=== PATIENT | male | born 1955 | race Caucasian/White ===

== ENCOUNTER → 2016-11-16 | Outpatient (CLI) | payer BC, OTHER ==
[~2016-11-16] MED LIST: ALLO300T2 PO; ASCO100T6 PO; ASP81CT PO; ATN25T PO; AZIT250T81 PO; CA C1TAB76 PO; CAYE450C PO; CEFD300C PO; COD1CAPS6 PO; COLC0.6T9 PO; D-MA50PO PO; HYDR-3811 PO; IODI150T PO; LACT1CAP69 PO; LD2VS20U PO; MAGN250T7 PO; PROB500T8 PO; SAW450CA4 PO; TRM50T PO; ZINC50TA2 PO; atenolol
[2016-11-16 17:29] LABS: MEAN CORPUSCULAR HEMOGLOBIN 27.6 PG (26.0-34.0); MEAN CORPUSCULAR HGB CONC 32.9 g/dL (31.0-37.0); MEAN PLATELET VOLUME 9.1 FL (6.0-9.5); WHITE BLOOD COUNT 9.58 10^3uL (4.0-11.0)
[2016-11-16 17:35] LABS: ALBUMIN 4.1 g/dL (3.4-5.0); CALCULATED IONIZED CALCIUM 3.8 mg/dL (3.8-4.6); TOTAL PROTEIN 8.2 g/dL (6.4-8.5)
[2016-11-16 17:41] LABS: ANION GAP 11.1 MEQ/L (3-15)
[2016-11-16 18:18] LABS: COLOR,URINE Yellow
[2016-11-16 18:19] LABS: BILIRUBIN,URINE Negative (Negative); CLARITY,URINE Clear; GLUCOSE, URINE (UA) Negative (Negative); LEUKOCYTE ESTERASE, URINE Negative (Negative); PH,URINE 5.5 (5.0 - 8.0); UROBILINOGEN,URINE 0.2 mg/dL (0.2-1.0)
== END ==
LOC: LAB 16:35
PROVIDERS: ATTEND Orthopaedic Surgery
DX: Z01.812 Encounter for preprocedural laboratory examination (principal)
CPT/HCPCS: 36415; 80053; 81003; 85027

== ENCOUNTER → 2017-01-03 | Outpatient (CLI) | payer BC, OTHER | LOC: RAD 10:36 | PROVIDERS: ATTEND Orthopaedic Surgery | DX: Z96.652 Presence of left artificial knee joint (principal) | CPT/HCPCS: 73560 ==

== ENCOUNTER 2017-01-11 10:45 | Outpatient (RCR) | payer BC, OTHER ==
--- NOTE | 2016-12-12 13:20 | PT/OT/ST INITIAL EVALUATION ---
[facility], [facility]. PHYSICAL/OCCUPATIONAL THERAPY [address] [place] [id number] PLAN OF CARE/ASSESSMENT FOR OUTPATIENT REHABILITATION (Complete for Initial Claims Only) 1. PATIENT'S NAME Siddharth Juarez 2. ACC. No [id number] 3. REFERRING PHYSICIAN Dr. Alcon Mayen 4. PRIMARY DX Left total knee arthroplasty 5. SECONDARY DX 6. ONSET DATE 12/04/2016 7. REFERRAL DATE 12/04/2016 8. SOC. DATE/TIME 12/07/2016 13:10 9. CHARGES Evaluation 80915 1 unit of vasopneumatic device, 78538 2 units of therapeutic exercise, 48281 10. G CODES 11. PRIOR LEVEL OF FUNCTION; PERTINENT HISTORY (Prior therapy results, reason for referral.) S: Prior to the evaluation, the patient did consent to evaluation and treatment. The patient is a 61-year-old male referred by Dr. Alcon Mayen 3 days status post left total knee arthroplasty. The patient reports a longstanding history of left knee pain in which he would experience lightning bolt sensations in the knee joint. He underwent a left total knee arthroplasty on 12/04/2016 and did return home on 12/06/2016. The patient is currently utilizing a CPM machine with a setting of -7 to 95 and icing every 2 hours. 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 The patient was active prior to his surgery; however, limitations and certain activities were present secondary to his left knee pain. He reports prior to surgery he was having difficulty with stairs. Current level of functional: The patient is currently off work at this time. The patient does report minimal interruptions in being able to sleep throughout the night secondary to knee pain. The patient is currently ambulating with a front-wheeled walker whereas prior to surgery he required no assistive device. Therapy History: The patient has not had any recent physical therapy services. Pain level: Maximum pain level is 9/10. Currently when he is sitting he has 0/10 pain. The pain is described as a deep aching. Aggravating factors: Include movement or maintaining the leg in a prolonged position without movement. Relieving factors: Pain medications, positioning and use of ice. 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 Epiglottitis and two prior knee arthroscopies. Medication list: The patient is currently taking [place] 7.5 mg every 4 hours and baby aspirin, working up toward a total milligram of 325. Patient's goal: The patient's goal is to return to ambulating without an assistive device and return to work. 12. INITIAL ASSESSMENT/SAFETY PRECAUTIONS/MEDICAL COMPLICATIONS (Level of function at start of care. Be specific, use objective measures, list problems.) O: APPEARANCE AND OBSERVATION: Observation of the patient's gait reveals the patient is ambulating with foot-flat positioning and increased knee extension in the left lower extremity with the use of a front-wheeled walker. Observation of the patient's knee joint reveals moderate postoperative swelling, redness medially at the knee joint. PALPATION: Tenderness to palpation throughout the knee joint. SPECIAL TESTING: Negative Abiola sign on the test and right was not assessed. RANGE OF MOTION/FLEXIBILITY: Active range of motion right knee flexion actively is 135 degrees, left is 90 degrees. Right knee extension is lacking 2 degrees from straight, left is lacking 13 degrees from straight. Bilateral ankle dorsiflexion is 2 degrees. STRENGTH: Right hip flexion, knee flexion, knee extension, and ankle dorsiflexion is 5/5. Left hip flexion 3/5. Left knee flexion 2+/5, left knee extension 2/5. TODAY'S TREATMENT: Today's treatment consisted of educating the patient on the recommended plan of care and progression of exercises, as well as pain management strategies. The physical therapist did progress range of motion exercises. The pain was managed with the use of a vasopneumatic device at the end of treatment. The patient was instructed to continue his current home exercise program he was issued from the surgical hospital. 13. INITIAL POC: (Specify procedures, modalities, short and director long term care goals) A: The patient presents at physical therapy approximately 3 days status post left total knee arthroplasty with left knee range of motion and strength deficits. The patient is also dependent upon assistive device for ambulation at this time. PROGNOSIS: This patient does have an excellent prognosis with regular attendance compliance with his home exercise program and pain management strategies. SHORT TERM GOALS X3 WEEKS: 1. The patient will report independence and compliance with his home exercise program. 2. The patient will improve left knee flexion to be greater than or equal to 100 degrees, extension to be less than or equal to 5 degrees. 3. The patient will demonstrate ability to ambulate with a single-point cane both indoors and outdoors without difficulty. CAVALRY SCOUT GOALS X6 WEEKS: 1. The patient will have 5/5 left knee flexion and extension strength. 2. The patient will demonstrate ability to ambulate with proper heel-toe gait pattern without the use of an assistive device community distances. 3. The patient will demonstrate the ability to traverse stairs leading with the left lower extremity without difficulty and maintaining proper knee alignment. The diagnosis, prognosis, treatment plan, risks, and expected outcomes were discussed with this patient and he is agreeable to today's evaluation and continuing with treatment. P: Plan to see this patient 3 times a week for 6 weeks in order to address left knee range of motion and strength deficits, and impaired gait imbalance secondary to undergoing a left total knee arthroplasty. Treatment will include modalities including vasopneumatic device to address pain and swelling, manual therapy techniques will be utilized at a later time if needed to improve muscle flexibility, and may include patellar mobilizations. Emphasis will be on improving range of motion and strength. Gait training, balance and proprioceptive training will be utilized and progressed as needed. The patient does have a home exercise program and this will be advanced as needed. Thank you for the referral of this patient. 14. PHYSICIAN SIGNATURE ? ON FILE OR ENTER HERE: 15. DATE: I certify the need for these services furnished under this plan of care and if for partial hospitalization. 16. CERTIFICATION FROM THROUGH
== END 2017-02-26 13:16 | disposition home or self-care (01) ==
LOC: PT 10:45
PROVIDERS: ATTEND Orthopaedic Surgery
DX: Z96.652 Presence of left artificial knee joint (principal)

== ENCOUNTER → 2017-03-14 | Outpatient (CLI) | payer BC, OTHER ==
[2017-03-14 10:51] LABS: MEAN PLATELET VOLUME 8.4 FL (6.0-9.5); WHITE BLOOD COUNT 9.74 10^3uL (4.0-11.0)
[2017-03-14 10:53] LABS: MEAN CORPUSCULAR HEMOGLOBIN 25.6 PG (26.0-34.0)
[2017-03-14 11:00] LABS: BILIRUBIN,URINE Negative (Negative); CLARITY,URINE Clear; COLOR,URINE Yellow; GLUCOSE, URINE (UA) Negative (Negative); LEUKOCYTE ESTERASE, URINE Negative (Negative); PH,URINE 5.5 (5.0 - 8.0); UROBILINOGEN,URINE 0.2 mg/dL (0.2-1.0)
[2017-03-14 11:24] LABS: ALBUMIN 4.1 g/dL (3.4-5.0); ANION GAP 18.5 MEQ/L (3-15); CALCULATED IONIZED CALCIUM 3.9 mg/dL (3.8-4.6); TOTAL PROTEIN 8.1 g/dL (6.4-8.5)
[2017-03-14 11:49] LABS: URINE CENTRIFUGED VOLUME 10 mL
[2017-03-14 11:51] LABS: RBC,URINE 0-2 /HPF
== END ==
LOC: LAB 10:40
PROVIDERS: ATTEND Orthopaedic Surgery
DX: M25.561 Pain in right knee (principal)
CPT/HCPCS: 36415; 80053; 81003; 81015; 85027